=== PATIENT | female | born 2000 | race Caucasian/White ===

== ENCOUNTER 2023-12-16 19:15 | Emergency (ER) | payer OTHER, SELFPAY ==
[2023-12-16 19:23] VITALS: BP 119/81; PULSE 87; RESP 18; TEMP 37.3; O2SAT 99; BMI 32.1
--- NOTE | 2023-12-16 19:41 | PC.NURSE ---
patient is approx 5 weeks . seen today for LLQ abdominal/Left sided pelvic cramping with a small amount blood noted in leggings. patient has hx of early miscarriage in 2017. states pain is dull and annoying. has tail bone pain for a fall a couple weeks ago unable to get MRI due to . patient currently being treated for UTI started oral antibiotics today. patient was at [facility] earlier today had blood work done
--- NOTE | 2023-12-16 19:46 | US_ITS ---
The [address] [address] Patient Name: RADHA HERNÁNDEZ MRN: [id number] date: 2000 Sex: F Assigned Patient Location: ER Current Patient Location: ER Accession/Order Number: [id number] Exam Date: 12/16/2023 20:01 Report Date: 12/16/2023 21:09 At the request of: GENARO DAVIS Procedure: US OB transvaginal US OB transvaginal HISTORY: ectopic COMPARISONS: None TECHNIQUE: Transvaginal imaging the pelvis was performed. FINDINGS: The uterus is anteverted. There is a tiny subserosal fibroid measuring 1.2 x 1.2 x 1.0 cm. The endometrium is not thickened. There is no gestational sac, yolk sac, pole or heartbeat. A definitive ectopic is not identified. RIGHT OVARY: Within normal limits without suspicious masses or cyst. There is normal blood flow. The right ovary measures 2.2 x 1.3 x 1.7 cm. LEFT OVARY: Within normal limits without suspicious masses or cyst. There is normal blood flow. The left ovary measures 2.8 x 2.3 x 2.7 cm. OTHER:There is no significant free fluid in the pelvis. US/US OB transvaginal IMPRESSION: No gestational sac, yolk sac or pole. No sonographic evidence to suggest ectopic . Correlation with serial beta hCG levels is recommended. Repeat sonography can be performed as clinically indicated. Electronically authenticated by: MAURO NEFF Date: 12/16/2023 21:09
--- NOTE | 2023-12-16 19:46 | ED_ITS ---
HPI - General Adult General Chief complaint: Urogenital-Female Stated complaint: 5-wks, Bleeding Time Seen by Provider: 12/16/23 19:23 Source: patient Mode of arrival: walk-in Limitations: no limitations History of Present Illness HPI narrative: Patient is a 23-year-old female G4, Who presents to the emergency department for the evaluation of vaginal bleeding and cramping. She states about 1 week ago she went to the [place] [facility] emergency department after falling on her tailbone. She states they did a test which was positive. She continues to have some pain in the coccyx but is able to ambulate without difficulty. She has had no urinary incontinence or peripheral paresthesias. She states that today she developed vaginal bleeding, immediately prior to arrival. She reports cramping to the left lower quadrant. She went to the [place] [facility] emergency department and was told that the wait would be 2 hours so she left and came directly to this facility. She denies fevers or vomiting. No medications taken prior to arrival. Related Data Home Medications Medication Instructions Recorded Confirmed No Known Home Medications 12/16/23 12/16/23 Allergies Allergy/AdvReac Type Severity Reaction Status Date / Time No Known Drug Allergies Allergy Verified 12/16/23 19:22 Review of Systems ROS Constitutional Denies: fever or chills Ears, nose, mouth, and throat Denies: throat pain or nasal congestion Cardiovascular Denies: chest pain Respiratory Denies: shortness of breath or cough Gastrointestinal Reports: abdominal pain; Denies: nausea or vomiting Genitourinary Reports: pelvic pain; Denies: painful urination Musculoskeletal Reports: back pain; Denies: neck pain, extremity pain or extremity swelling Integumentary/Breast Denies: rash Neurological Denies: headache Endocrine Denies: excessive urination [facility] Social History Smoking status: Never smoker Exam Narrative Exam Narrative: Gen.: Awake, alert, in no distress Head: Normocephalic, atraumatic ENT: Moist mucous membranes Respiratory: No respiratory distress Gastrointestinal: Abdomen is soft, nondistended and Tender to palpation in the left lower quadrant with no guarding or rebound Extremities: Moves extremities equally Psych: Normal mood and affect Neuro: No focal neuro deficit Skin: Warm, dry, intact Constitutional Vital Signs, click to edit/add: Last Vital Signs Temp 99.2 F 12/16/23 19:23 Pulse 87 12/16/23 19:23 Resp 18 12/16/23 19:23 BP 119/81 12/16/23 19:23 Pulse Ox 99 12/16/23 19:23 O2 Del Method Room Air 12/16/23 19:23 Course Vital Signs Vital signs: Vital Signs Temperature 99.2 F 12/16/23 19:23 Pulse Rate 87 12/16/23 19:23 Respiratory Rate 18 12/16/23 19:23 Blood Pressure 119/81 12/16/23 19:23 Pulse Oximetry 99 12/16/23 19:23 Oxygen Delivery Method Room Air 12/16/23 19:23 Temperature 99.2 F 12/16/23 19:23 Pulse Rate 87 12/16/23 19:23 Respiratory Rate 18 12/16/23 19:23 Blood Pressure 119/81 12/16/23 19:23 Pulse Oximetry 99 12/16/23 19:23 Oxygen Delivery Method Room Air 12/16/23 19:23 Medical Decision Making MDM Narrative Medical decision making narrative: Patient with a negative blood type, she was given RhoGAM in the ER. The remainder of her labs and urine specimen are grossly unremarkable. Quantitative hCG level is 430. She apparently had an outpatient lab done from her DRAW MACHINE OPERATOR this morning from the [facility] showing a quantitative hCG level of 600. As the patient is very early in , she was encouraged to repeat this level in several days at the [facility] to see how her levels are tracking. She will contact her DRAW MACHINE OPERATOR office tomorrow. Ultrasound does not show any evidence of ectopic , no evidence of gestational sac. Patient was given counseling, education that she may have miscarried versus be very early in . Return to the ER if symptoms change or worsen. Medical Records Medical records reviewed: Yes I reviewed the patient's medical records Lab Data Lab results reviewed: Yes I reviewed the patient's lab results Labs: Lab Results 12/16/23 12/16/23 Range/Units 19:30 19:42 WBC 7.0 (4.0-11.0) 10^3/uL RBC 4.05 L (4.20-5.40) 10^6/uL Hgb 12.7 (12.0-16.0) g/dL Hct 38.0 (36.0-48.0) % MCV 93.8 (81.0-99.0) fL MCH 31.4 (26.7-34.0) pg MCHC 33.4 (29.9-35.2) g/dL RDW 13.1 (11.0-15.0) % Plt Count 316 (150-450) 10^3/uL MPV 9.9 (9.5-13.5) fL Neut % (Auto) 56.2 (43.0-75.0) % Lymph % (Auto) 37.1 (20.5-60.0) % Mathews % (Auto) 5.0 (1.7-12.0) % Eos % (Auto) 1.0 (0.9-7.0) % Baso % (Auto) 0.6 (0.2-2.0) % Neut # (Auto) 3.9 (1.4-6.5) 10^3/uL Lymph # (Auto) 2.6 (1.2-3.8) 10^3/uL Mathews # (Auto) 0.4 (0.3-0.8) 10^3/uL Eos # (Auto) 0.1 (0.0-0.7) 10^3/uL Baso # (Auto) 0.0 (0.0-0.1) 10^3/uL Abs Immat Gran (auto) 0.01 (0.00-0.03) 10^3/uL Imm/Tot Granulo (auto) 0.1 (0.0-0.5) % HCG, Quant 431 mIU/mL Urine Color Yellow (YELLOW) Urine Clarity Clear (CLEAR) Urine pH 6.0 (5.0-9.0) Ur Specific [place] >=1.030 A (1.005-1.025) Urine Protein Trace (NEG/TRACE) mg/dL Urine Glucose (UA) Negative (NEGATIVE) mg/dL Urine Ketones Negative (NEGATIVE) mg/dL Urine Occult Blood Large A (NEGATIVE) Urine Nitrite Negative (NEGATIVE) Urine Bilirubin Negative (NEGATIVE) Urine Urobilinogen 0.2 (0.2-1.0) EU/dL Ur Leukocyte Esterase Negative (NEGATIVE) Urine RBC 2-5 A (0-2) #/HPF Urine WBC 2-5 A (NONE SEEN) #/HPF Ur Squamous Epith Cells Many A (NONE/RARE) #/LPF Urine Crystals None seen (None Seen) #/HPF Urine Bacteria Small A (NONE SEEN) #/HPF Urine Casts None seen (NONE SEEN) #/LPF Urine Mucus Large A (NONE SEEN) Ur Culture Indicated? Yes Blood Type A Negative Imaging Data US - abdomen: Attestation: I have reviewed the pertinent imaging results. Radiologist's impression: ITS Impressions Transvaginal US 12/16/23 19:46 IMPRESSION: No gestational sac, yolk sac or pole. No sonographic evidence to suggest ectopic . Correlation with serial beta hCG levels is recommended. Repeat sonography can be performed as clinically indicated. Electronically authenticated by: MAURO NFEF Date: 12/16/2023 21:09 Discharge Plan Discharge Chief Complaint: Urogenital-Female Clinical Impression: Vaginal bleeding in Patient Disposition: Home, Self-Care Time of Disposition Decision: 21:20 Condition: Good Prescriptions / Home Meds: No Action No Known Home Medications Instructions: Threatened Miscarriage (ED) Additional Instructions: Please follow up with your DRAW MACHINE OPERATOR office by the end of the week for repeat labs Stand Alone Forms: Portal Instructions Referrals: Physician,Non-Staff, MD [Primary Care Provider] - 1 week Discharge Date/Time: 12/16/23 21:40
[2023-12-16 19:49] LABS: Bilirubin Urine NEGATIVE (NEGATIVE); Blood Urine LARGE (NEGATIVE); Clarity Urine CLEAR (CLEAR); Color Urine YELLOW (YELLOW); Glucose Urine UA NEGATIVE (NEGATIVE); Ketones Urine NEGATIVE (NEGATIVE); Leukocyte Esterase Urine NEGATIVE (NEGATIVE); Nitrite Urine NEGATIVE (NEGATIVE); Protein Urine TRACE mg/dL (NEG/TRACE); Specific Gravity Urine >=1.030 (1.005-1.025); Urobilinogen Urine 0.2 EU/dL (0.2-1.0)
[2023-12-16 19:49] LABS: Basophils Percent Auto 0.6 % (0.2-2.0); Eosinophils Absolute Auto 0.1 10^3/uL (0.0-0.7); Hemoglobin 12.7 g/dL (12.0-16.0); Immature Granulocytes Abs Auto 0.01 10^3/uL (0.00-0.03); Immature Granulocytes Pct Auto 0.1 % (0.0-0.5); Lymphocytes Absolute Auto 2.6 10^3/uL (1.2-3.8); Lymphocytes Percent Auto 37.1 % (20.5-60.0); Mean Corpuscular HGB Conc 33.4 g/dL (29.9-35.2); Mean Corpuscular Hemoglobin 31.4 pg (26.7-34.0); Mean Corpuscular Volume 93.8 fL (81.0-99.0); Mean Platelet Volume 9.9 fL (9.5-13.5); Monocytes Absolute Auto 0.4 10^3/uL (0.3-0.8); Neutrophils Absolute Auto 3.9 10^3/uL (1.4-6.5); Neutrophils Percent Auto 56.2 % (43.0-75.0); Platelet Count 316 10^3/uL (150-450); Red Blood Count 4.05 10^6/uL (4.20-5.40); Red Cell Distribution Width 13.1 % (11.0-15.0)
[2023-12-16 19:50] LABS: Urine Microscopic Indicated YES
[2023-12-16 19:56] LABS: Bacteria Urine SMALL #/HPF (NONE SEEN); Mucus Urine LARGE (NONE SEEN); Squamous Epithelial Cell Urine MANY #/LPF (NONE/RARE)
[2023-12-16 19:57] LABS: Cast Seen? NONE SEEN #/LPF (NONE SEEN); Crystals Seen? None Seen #/HPF (None Seen); Urine Culture Indicated YES
[2023-12-16 20:08] LABS: HCG Quantitative 431 mIU/mL
[2023-12-16] MEDS: RHO(D) IMMUNE GLOBULIN 1,500 UNIT SYRINGE 1500 UNIT IM (21:27)
== END 2023-12-16 21:40 | disposition home or self-care (01) ==
PROVIDERS: Physician Assistant; Emergency Provider Internal Medicine
DX: O20.9 Hemorrhage in early pregnancy, unspecified (principal); Z3A.01 Less than 8 weeks gestation of pregnancy
CPT/HCPCS: 36415; 76817; 81001; 84702; 85025; 86900; 86901; 87086; 96372; 99285; J2790